=== PATIENT | male | born 1960 | race Caucasian/White ===

== ENCOUNTER 2017-05-31 09:21 | Inpatient (IN) | payer MEDICAID, MEDICARE, OTHER ==
[2017-05-31 09:33] VITALS: O2SAT 98
--- NOTE | 2017-05-31 09:52 | C.PDOC ---
History Of Present Illness 56 yr old male presents to the ER intoxicated. Patient states " I need to see a psychiatrist", states he is here to warn about an alien invasion. Patient has history of cutting. As per RN, patient complaints of depression with possible suicidal ideation. Patient denies use of other drugs. HPI is limited due to intoxication. Denies chest pain, SOB or homicidal ideation. LIMITED DUE TO INTOX "I NEED TO SEE A PSYCHIATRIST", STATES HERE TO WARN ABOUT ALIENS. HO CUTTING. PER RN, PT CO DEPRESSION ?SI. +ETOH. DENIES OTHER DRUG USE ROS LIMITED EXAM MILD DIST NONTOXIC PSYCH +INTOX CALM COOPERATIVE +ACTIVE PSYCHOSIS REMAINDER NEG Time Seen by Provider: 05/31/17 09:40 Chief Complaint (Nursing): Psychiatric Evaluation History Per: Patient History/Exam Limitations: no limitations Modifying Factor(s): Alcohol Past Medical History Reviewed: Historical Data, Nursing Documentation, Vital Signs Vital Signs: Last Vital Signs Temp 98.5 F 05/31/17 09:28 Pulse 92 H 05/31/17 09:28 Resp 18 05/31/17 09:28 BP 107/75 05/31/17 09:28 Pulse Ox 98 05/31/17 14:15 - Medical History PMH: Fractures, HTN (doesnt take meds) - [facility] INJECT/INFUSE NEC (09/27/13) Family History: States: No Known Family Hx - Social History Hx Tobacco Use: Yes Hx Alcohol Use: Yes Hx Substance Use: No - Immunization History Hx Tetanus Toxoid Vaccination: No Hx Influenza Vaccination: Yes Hx Pneumococcal Vaccination: Yes Review Of Systems Except As Marked, All Systems Reviewed And Found Negative. Cardiovascular: Negative for: Chest Pain Respiratory: Negative for: Shortness of Breath Psych: Positive for: Depression, Suicidal ideation Physical Exam - Physical Exam Appears: Non-toxic, In Acute Distress (Mild) Skin: Warm, Dry Head: Atraumatic, Normacephalic Respiratory: Normal Breath Sounds Neurological/Psych: Normal Speech, Normal Motor, Other (Intoxicated. Calm. Cooperative. Active psychosis.) ED Course And Treatment - Laboratory Results Result Diagrams: 05/31/17 10:08 05/31/17 10:08 O2 Sat by Pulse Oximetry: 98 (RA) Pulse Ox Interpretation: Normal Progress - Re-Evaluation Re-evaluation Note: 05/31/17 12:37 MED CLEAR FOR PSYCH CRISIS NOTIFIED - Data Reviewed Data Reviewed: Lab, Old records Medical Decision Making Medical Decision Making: PLAN: * Alcohol Serum * Drug Screen * CBC * CMP * Urinalysis Disposition Counseled Patient/Family Regarding: Studies Performed, Diagnosis - Disposition Disposition: HOSPITALIZED Disposition Time: 14:14 Condition: STABLE Forms: [facility] (Kiswahili) - POA Present On Arrival: None - Clinical Impression Clinical Impression: Alcohol intoxication, Psychosis - Scribe Statement The provider has reviewed the documentation as recorded by the Jhon Ignacio Provider Attestation: All medical record entries made by the Anaibjenny were at my direction and personally dictated by me. I have reviewed the chart and agree that the record accurately reflects my personal performance of the history, physical exam, medical decision making, and the department course for this patient. I have also personally directed, reviewed, and agree with the discharge instructions and disposition. Decision To Admit - Pt Status Changed To: Hospital Disposition Of: Inpatient - Admit Certification Admit to Inpatient:: After my assessment, the patient will require hospitalization for at least two midnights. This is because of the severity of symptoms shown, intensity of services needed, and/or the medical risk in this patient being treated as an outpatient. - InPatient: Physician Admission Certification: I certify that this patient requires 2 or more midnights of care for the following reason:: SEE NOTE - . Bed Request Type: Psychiatry Admitting Physician: Rhona Briones Patient Diagnosis: Alcohol intoxication, Psychosis
[2017-05-31 10:25] LABS: BASO # 0.1 K/uL (0.0-0.2); BASO % 1.1 % (0.0-2.0); EOS # 0.3 K/uL (0.0-0.7); EOS % 2.6 % (0.0-4.0); HEMATOCRIT 42.1 % (35.0-51.0); LYMPH # 2.2 K/uL (1.0-4.3); LYMPH % 20.9 % (20.0-40.0); MEAN CELL VOLUME 97.6 fL (80.0-94.0); MEAN CORPUSCULAR HEMOGLOBIN 33.8 pg (27.0-31.0); MEAN CORPUSCULAR HGB CONC 34.6 g/dL (33.0-37.0); MEAN PLATELET VOLUME 8.7 fL (7.2-11.7); MONO # 1.1 K/uL (0.0-0.8); MONO % 10.6 % (0.0-10.0); NRBC % 0.2 % (0.0-2.0); RED CELL DISTRIBUTION WIDTH 15.4 % (11.5-14.5); WHITE BLOOD COUNT 10.3 K/uL (4.8-10.8)
[2017-05-31 11:02] LABS: ALCOHOL SERUM 191 mg/dl (0-10); ALKALINE PHOSPHATASE 68 U/L (38-126); ALT/SGPT 734 U/L (21-72); AST/SGOT 385 U/L (17-59); BILIRUBIN,TOTAL 0.5 mg/dL (0.2-1.3); BLOOD UREA NITROGEN 15 mg/dL (9-20); CALCIUM 8.9 mg/dl (8.6-10.4); CARBON DIOXIDE 22 mmol/L (22-30); CHLORIDE 102 mmol/L (98-107); GFR AFRICAN-AMERICAN > 60; GLUCOSE,RANDOM 91 mg/dL (75-110); SODIUM 135 mmol/L (132-148); TOTAL PROTEIN 8.8 g/dL (6.3-8.3)
[2017-05-31 11:24] LABS: URINE BILIRUBIN NEGATIVE (NEGATIVE); URINE BLOOD NEGATIVE (NEGATIVE); URINE COLOR Yellow (YELLOW); URINE GLUCOSE (UA) NORMAL (Normal); URINE KETONE NEGATIVE (NEGATIVE); URINE LEUKOCYTE ESTERASE NEG Leu/uL (Negative); URINE PROTEIN NEGATIVE (NEGATIVE); URINE UROBILINOGEN NORMAL mg/dL (0.2-1.0); WBC URINE 1 /hpf (0-5)
[2017-05-31] MEDS: Multiple Vitamins Tab PO SCH (15:05)
--- NOTE | 2017-05-31 16:54 | PCM.BM ---
<WesKristen - Last Filed: 05/31/17 16:53> Treatment Plan Problems - Problems identified on initial assessmt Depression Date Initiated: 05/31/17 Time Initiated: 16:00 Status: Active Alcohol Abuse Date Initiated: 05/31/17 Time Initiated: 16:00 Assessment reference: NA Status: Active Treatment assets and liabiliti Patient Assests: ADL independent, good support system, negotiates basic needs Patient Liabilities: poor support system, substance abuse (Alcohol) - Milieu Protocol Maintain good personal hygiene: daily Encourage regular showers, daily Remind patient to perform daily oral care Conduct patient checks and document Observation sheet: Q15 minutes Maintain personal safety: every shift Educate patient to report safety concerns to staff, every shift Monitor environment for contraband/sharps Medication safety: Monitor for expected outcome, potential side effects: every shift, Assess barriers to learning: every shift, Assess readiness for medication education: every shift <Melinda Romeo - Last Filed: 06/02/17 11:03> Family Contact Family involvement: Family/SO is involved Family contact: Patient agrees to contact - Goals for Treatment Patient goals for treatment: "I want to go home." Discharge/Continuing Care - Education Needs Education Needs: Patient Medication, Patient Coping Skills, Patient Placement options, Patient Community resources - Discharge Discharge Criteria: Tolerates medication w/o severe side effects, Reduction of target symptoms Discharge to:: Home - Treatment Team Participation Discussed with Family/SO: No Was Patient/Family/SO present at Treatment Team Meeting: Yes <Adriana Yung - Last Filed: 06/02/17 11:17> - Diagnosis (1) Bipolar disorder, curr episode mixed, severe, with psychotic features Status: Acute Interventions: 06/02/17 11:16 * Assess/adjust medications daily and /or as needed * See patient on an individual basis 7x/week to assess level of manic behaviors and stability * Discuss risks, benefits, side effects and alternatives of medications * (2) Alcohol use disorder, severe, dependence Status: Acute Interventions: 06/02/17 11:17 * Assess 7x/week regarding severity of withdrawal * Educate regarding risks, benefits, side effects and alternatives of medications * Use Motivational Interviewing for abstinence * Use CBT for relapse prevention * Medication management for withdrawal symptoms * Encourage medication assisted treatment *
[2017-06-01] MEDS: Multiple Vitamins Tab PO SCH (10:00)
--- NOTE | 2017-06-01 20:26 | PCM.PSYCH ---
Initial Psychiatric Evaluation - Initial Psychiatric Evaluation Type of Admission: Voluntary Legal Status: Capacity Chief Complaint (in patient's own words): "Alcohol is not a problem for me" History of Present Illness and Precipitating Events: Patient is a 56 y/o male was self referred to [facility] ED for the treatment of etoh and depressive symptoms with SI and intoxicated. He was accompanied by his girlfriend of 3 months, who resided with patient. Both were registered for treatment as they both reported suicidal ideations and both were intoxicated. Per chart review: Patient reported during the suicidal assessment that he was suicidal with plan to cut his wrists, showing worker old lacerations on his arms. Pt. stated that his ex-girlfriend's children age 1 and 5 from cancer and he wanted to go with them. Patient BAL at that time was 191. CW assessed patient who stated that he was not suicidal, he admitted that he stated that he wanted to kill himself to be with the children that , patient admitted that he was saying "stupid" things as per patient. Patient stated that he is not hearing voices at this time but he hear voices from the Aliens that took him when he was 7 years old. Patient states that the Aliens are good people that want to teach him things about Science. Patient states that Aliens are "good" that comes to teach us. Patient states that it is a lot of bad things in the world. Patient states "human beings are bad, they hurt people , they have bombs. ". Patient reported that he was in the [place] for 8 years, he went to College for a year, patient is disabled. Patient states that the voices only comes sometimes. Patient admitted that he wante to earlier but now the aliens can take him there, referring to see the girls that . Patient stated that he drink daily since the age of 7 when his uncle was playing "dominoes" and gave him drinks. Patient reported that he is smoking since the age of 9. Presently smoking 1/2 a pack. Patient denied history of mental illness, no prior treatment. Pt. admitted that his PCP asked him to see a psychiatrist in [place] but he had no money for transportation. Today on evaluation he stated that etoh is not a problem for him and he made a jokes yesterday that he is SI. Currently he denied SI, depressive sx. He demanded to be d/c. He reported that he want to be with his GF. He was minimizing his symptoms. He refuse to take his ativan for etoh. He reported that he does not want to be in the hospital as he has had etoh craving and he wants drink etoh. He reproted that he drinks 1 cse of beer on daily basis with his GF. He reported that he had never etoh withdrawal symptoms, b/c he start drinking etoh in the morning and through out the day. He denied any AVH, DT, seizures in the past. Per chart review collateral information from the mother the pt is and he had etoh problems. BAL was high at the time of admission, AST and ALT was high Time spend 35 minutes Current Medications: Active Medications Generic Name Dose Route Start Last Admin Trade Name Freq PRN Reason Stop Dose Admin Benztropine Mesylate 2 mg 05/31/17 14:39 Cogentin PO Q6 PRN Extra Pyramidal Symptoms Folic Acid 1 mg 05/31/17 14:45 06/01/17 13:02 Folic Acid PO 1 mg DAILY TAY Administration Haloperidol 5 mg 05/31/17 14:39 Haldol PO Q8 PRN Moderate Agitation Haloperidol Lactate 5 mg 05/31/17 14:39 Haldol IM Q8 PRN Moderate Agitation Hydroxyzine HCl 25 mg 05/31/17 14:39 Atarax PO Q6 PRN Anxiety Ibuprofen 400 mg 05/31/17 18:15 05/31/17 18:44 Motrin Tab PO 400 mg Q6 PRN Administration Pain, moderate (4-7) Lorazepam 1 mg 05/31/17 15:00 06/01/17 16:38 Ativan PO 06/04/17 14:59 1 mg Q4 TAY Administration Taper Multivitamins 1 tab 05/31/17 14:45 06/01/17 10:00 Hexavitamin PO Not Given DAILY TAY Risperidone 0.5 mg 05/31/17 15:00 06/01/17 10:00 Risperdal Tab PO Not Given BID TAY Thiamine HCl 100 mg 05/31/17 14:45 06/01/17 13:02 Vitamin B1 Tab PO 100 mg DAILY TAY Administration Past Psychiatric History - Past Psychiatric History Previous Treatment History: Inpatient Prior Professional Help: denied History of ETOH/Drug Use: please see HPI History of Family Illness: denied Pertinent Medical Hx (Current Medical&Sleep Prob, Allergies): Allergies Allergy/AdvReac Type Severity Reaction Status Date / Time No Known Allergies Allergy Unverified 05/31/17 09:45 No Known Home Med 05/31/17 foot pain and wearing Right foot braces Review of Systems - Review of Systems All systems: reviewed and no additional remarkable complaints except (Psych and please see HPI) Mental Status Examination - Personal Presentation Personal Presentation: Looks stated age, Dressed appropriate to season Additional comments: He had +ve hand tremors, horizontal nystagmus, tongue fasciculation, disheveled. - Affect Affect: Constricted - Motor Activity Motor Activity: Psychomotor Agitation - Reliability in Providing Information Reliability in Providing Information: Fair - Speech Speech: Coherent - Mood Mood: Anxious - Formal Thought Process Formal Thought Process: Circumstantial Additional comments: goal directed and want to d/c from the unit - Hallucinations/Delusions Delusions: Other (denied, but appeared internally preoccupied and responding to stimuli) - Obsessions/Compulsions Obsessions: No Compulsions: No - Cognitive Functions Orientation: Person, Place, Situation Sensorium: Alert Abstract Thinking: [place] Estimate of Intelligence: Average Judgement: Imparied, as evidence by: Poor judgement, Imparied, as evidence by: Lack of insight into illness Memory: Recent intact, as evidence by: Ability to recall events of the day - Risk Risk: Seizure, Withdrawal Additional comments: DT - Strength & Assets Inventory Strength & Assets Inventory: Education - Limitations Limitations: Other (chronic etoh use ) DSM 5 DX - DSM 5 DSM 5 Diagnosis: etoh use disorder, dependence, severe, intoxicated, withdrawal - Recommended/Plan of Treatment Treatment Recommendations and Plan of Treatment: Ativan taper for etoh withdrawal symptoms Risperdal for psychosis Recommend to continue detox. Psychoeducation provided, regarding dx, tx, meds benefits, s/e, compliance. Pt verbalized understanding and agreed to start meds. Recommend individual/ group therapy Recommend inpt rehab after d/c Recommend to monitor vitals every 2-4 hour. Therapy in milieu. Projected ELOS: 5-7 days Prognosis: guarded Discharge Plan and Discharge Criteria: please see Plan
[2017-06-02 06:50] VITALS: RESP 20
--- NOTE | 2017-06-02 10:17 | PCM.PYCHPN ---
Psychiatric Progress Note - Psychiatric Progress Note Patient seen today, length of contact: 15 min Patient Chief Complaint: Patient seen and evaluated, chart reviewed and discussed with the nurse. Today patient appears anxious and reports withdrawal symptoms from alcohol. He remained irritable and agitated and signed 48 hours to be released after 2 days. He denies any suicidal ideation or homicidal ideation and denies any auditory or visual hallucinations. He is taking medication and denied any side effects. He needs more time for stabilization. Supportive therapy and psychoeducation were given. Medication Change: Yes (ativan taper) Medical Record Reviewed: Yes Mental Status Examination - Cognitive Function Orientation: Person, Place, Situation Memory: Intact Attention: WNL Concentration: Poor Association: WNL Fund of Knowledge: Poor - Mood Mood: Anxious - Affect Affect: Constricted - Speech Speech: Pressured - Formal Thought Process Formal Thought Process: Circumstantial - Suicidal Ideation Suicidal Ideation: No - Homicidal Ideation Homicidal Ideation: No Goal/Treatment Plan - Goal/Treatment Plan Need for Continued Stay: Severe depression anxiety, Severe functional impairment Progress Toward Problem(s) and Goals/Treatment Plan: Ativan taper for etoh withdrawal symptoms Risperdal for psychosis Recommend to continue detox. Psychoeducation provided, regarding dx, tx, meds benefits, s/e, compliance. Pt verbalized understanding and agreed to start meds. Recommend individual/ group therapy Recommend inpt rehab after d/c Recommend to monitor vitals every 2-4 hour. Therapy in milieu. - Smoking Cessation Smoking Cessation Initiated: No
[2017-06-02] MEDS: Multiple Vitamins Tab PO SCH (10:57)
[2017-06-03 06:32] VITALS: BP 139/85; PULSE 77; TEMP 97.9
--- NOTE | 2017-06-03 09:01 | PCM.PYCHDC ---
Mental Status Examination - Mental Status Examination Orientation: Person, Place, Situation, Time Memory: Intact Mood: Neutral Affect: Constricted Speech: Soft Attention: WNL Concentration: WNL Association: WNL Fund of Knowledge: WNL Formal Thought Process: No Impairment Description of patient's judgement and insight: good, fair Psychotic Thoughts and Behaviors: denies any AVH Suicidal Ideation: No Current Homicidal Ideation?: No Discharge Summary - Discharge Note Reason for Hospitalization: Patient is a 56 y/o male was self referred to [facility] ED for the treatment of etoh and depressive symptoms with SI and intoxicated. He was accompanied by his girlfriend of 3 months, who resided with patient. Both were registered for treatment as they both reported suicidal ideations and both were intoxicated. Per chart review: Patient reported during the suicidal assessment that he was suicidal with plan to cut his wrists, showing worker old lacerations on his arms. Pt. stated that his ex-girlfriend's children age 1 and 5 from cancer and he wanted to go with them. Patient BAL at that time was 191. CW assessed patient who stated that he was not suicidal, he admitted that he stated that he wanted to kill himself to be with the children that , patient admitted that he was saying "stupid" things as per patient. Patient stated that he is not hearing voices at this time but he hear voices from the Aliens that took him when he was 7 years old. Patient states that the Aliens are good people that want to teach him things about Science. Patient states that Aliens are "good" that comes to teach us. Patient states that it is a lot of bad things in the world. Patient states "human beings are bad, they hurt people , they have bombs. ". Patient reported that he was in the [employer] for 8 years, he went to College for a year, patient is disabled. Patient states that the voices only comes sometimes. Patient admitted that he wante to earlier but now the aliens can take him there, referring to see the girls that . Patient stated that he drink daily since the age of 7 when his uncle was playing "dominoes" and gave him drinks. Patient reported that he is smoking since the age of 9. Presently smoking 1/2 a pack. Patient denied history of mental illness, no prior treatment. Pt. admitted that his PCP asked him to see a psychiatrist in [place] but he had no money for transportation. Today on evaluation he stated that etoh is not a problem for him and he made a jokes yesterday that he is SI. Currently he denied SI, depressive sx. He demanded to be d/c. He reported that he want to be with his GF. He was minimizing his symptoms. He refuse to take his ativan for etoh. He reported that he does not want to be in the hospital as he has had etoh craving and he wants drink etoh. He reproted that he drinks 1 cse of beer on daily basis with his GF. He reported that he had never etoh withdrawal symptoms, b/c he start drinking etoh in the morning and through out the day. He denied any AVH, DT, seizures in the past. Consultations:: List each consultation separately and include: 1. Reason for request. 2. Findings. 3. Follow-up Summary of Hospital Course include:: 1. Description of specific treatment plan utilized for patients during their course of treatmen. 2. Summarize the time- course for resolution of acute symptoms and/or regressed behaviors. 3. Describe issues identified and worked on during hospitalization. 4. Describe medication utilized. 5. Describe medical problems identified and treated. 6. Reassessment of suicide risk Summary of Hospital Course: Patient was admitted to psychiatric floor on 05/31 for depressive and anxiety symptoms as well as to detox from alcohol. The pt was started on his antidepressants and detox medications. Support therapy, psychotherapy, and psychoeducation were also provided. For his detox from alcohol he was started on ativan taper which he completed successfully without any complications. The patient attended groups and activities, as well as milieu therapy. Patient denied any feelings of hopelessness, helplessness, and worthlessness, denied any problem with the sleep or appetite, denied suicidal ideation or homicidal ideation. Pt denied any auditory or visual hallucinations. Some changes were made in his current medications and patient was discharged on following medications. He tolerated these medications very well and denied any side effects. He signed a 48 hrs notice, so he was discharged today. All the risks and benefits of medications were discussed and the patient understood and agreed. After care discussed and the patient agreed to go to the [facility]'. - Diagnosis (1) Bipolar disorder, curr episode mixed, severe, with psychotic features Status: Acute (2) Alcohol use disorder, severe, dependence Status: Acute - Final Diagnosis (DSM 5) Condition upon Discharge: STABLE DSM 5: Bipolar disorder, curr episode mixed, severe, with psychotic features Alcohol use disorder, severe, dependence Disposition: HOME/ ROUTINE Follow-up Treatment Plan: Education: Pt was educated and counseled about the risks and benefits of taking and not taking medications. Pt was educated and counseled about the risks of drinking and abusing drugs. Pt was educated and counseled to go to the ER or call 911 if pt develop suicidal ideation or homicidal ideation, worsening of symptoms or severe side effects of the meds. Prescriptions/Medication Reconciliation: Benztropine [Cogentin] 1 mg PO HS #14 tab Gabapentin [Neurontin] 300 mg PO TID 14 Days cap risperiDONE [RisperDAL Tab] 2 mg PO HS #14 tab traZODone [Desyrel] 50 mg PO HS #14 tab - Smoking Cessation Smoking Cessation Medication prescribed: No - Antipsychotic Medications Pt discharged on 2 or more routine antipsychotic medications: No
[2017-06-03] MEDS ORDERED: Influenza Vaccine 60 mcg/0.5 mL SYR (4YR UP) IM ONE (10:00)
[2017-06-03] MEDS: Multiple Vitamins Tab PO SCH (10:03)
== END 2017-06-03 11:33 | disposition home or self-care (01) | DRG 885 ==
LOC: C.ER 09:21 → C.9E 14:15 → C.5E 14:49
PROVIDERS: ADMIT Psychiatry & Neurology Psychiatry; ATTEND Psychiatry & Neurology Psychiatry
DX: F31.9 Bipolar disorder, unspecified (principal); I10 Essential (primary) hypertension; F29 Unspecified psychosis not due to a substance or known physiological condition; F10.229 Alcohol dependence with intoxication, unspecified; F17.200 Nicotine dependence, unspecified, uncomplicated

== ENCOUNTER 2018-05-28 01:39 | Inpatient (IN) | payer MEDICARE ==
--- NOTE | 2018-05-28 01:56 | C.PDOC ---
History Of Present Illness 57 year old male presents to the ED c/o feeling depresses, SI with a plan. Patient states he feels depressed because nobody wants to have him for Thanksgiving. Patient denies HI, hallucinations, CP, SOB, trauma, injury, fall. Time Seen by Provider: 05/28/18 01:54 Chief Complaint (Nursing): Psychiatric Evaluation History Per: Patient History/Exam Limitations: no limitations Onset/Duration Of Symptoms: Days Current Symptoms Are (Timing): Still Present Suicide/Self Injury Attempted (Context): Cut Wrists Modifying Factor(s): Alcohol Associated Symptoms: Depression, Suicidal Thoughts, Suicidal Plan Recent travel outside of the [place]: No Additional History Per: Patient Past Medical History Reviewed: Historical Data, Nursing Documentation, Vital Signs Vital Signs: Last Vital Signs Temp 98.2 F 05/28/18 01:41 Pulse 94 H 05/28/18 01:41 Resp 20 05/28/18 01:41 BP 115/76 05/28/18 01:41 Pulse Ox 99 05/28/18 01:41 - Medical History PMH: Fractures, HTN (doesnt take meds) Surgical History: No Surg Hx - [facility] Procedures INJECT/INFUSE NEC (09/27/13) Family History: States: Unknown Family Hx - Social History Hx Tobacco Use: Yes Hx Alcohol Use: Yes Hx Substance Use: No - Immunization History Hx Tetanus Toxoid Vaccination: No Hx Influenza Vaccination: Yes Hx Pneumococcal Vaccination: No Review Of Systems Constitutional: Negative for: Fever, Chills Eyes: Negative for: Vision Change Cardiovascular: Negative for: Chest Pain Respiratory: Negative for: Cough, Shortness of Breath Gastrointestinal: Negative for: Nausea, Vomiting, Abdominal Pain Skin: Positive for: Rash Neurological: Negative for: Weakness, Numbness Psych: Positive for: Depression, Suicidal ideation Physical Exam - Physical Exam Appears: Non-toxic, No Acute Distress, Other (flat affect) Skin: Warm, Dry Head: Normacephalic Eye(s): bilateral: Normal Inspection Neck: Supple Chest: Symmetrical Cardiovascular: Rhythm Regular Respiratory: No Rales, No Rhonchi, No Wheezing Gastrointestinal/Abdominal: Soft, No Tenderness, No Guarding, No Rebound Extremity: Capillary Refill (< 2 seconds) Extremity: Left: Other (3 excoriations on left wrist), Bilateral: Atraumatic, Normal ROM Pulses: Left Radial: Normal, Right Radial: Normal Neurological/Psych: Oriented x3, Normal Speech, Normal Cognition, Normal Motor, Normal Sensation Gait: Steady ED Course And Treatment - Laboratory Results Result Diagrams: 05/28/18 03:00 05/28/18 03:00 O2 Sat by Pulse Oximetry: 99 (ON RA) Pulse Ox Interpretation: Normal Progress Note: Plan: - Labs. - UA. - Crisis eval. - 1:1 Obs Disposition Counseled Patient/Family Regarding: Studies Performed, Diagnosis - Disposition Disposition Time: 01:54 Condition: FAIR Forms: Yodo1 (Wolof) - Clinical Impression Clinical Impression: Alcohol abuse, Major depression - Scribe Statement The provider has reviewed the documentation as recorded by the Scribe Kamaljit Sales All medical record entries made by the Scribe were at my direction and personally dictated by me. I have reviewed the chart and agree that the record accurately reflects my personal performance of the history, physical exam, medical decision making, and the department course for this patient. I have also personally directed, reviewed, and agree with the discharge instructions and disposition. Physician Patient Turnover Patient Signed Over To: Melissa Rodarte Handoff Comments: pending crisis and dispo
[2018-05-28] MEDS ORDERED: Tetanus/Diphtheria Toxoids 0.5 ml Syringe IM ONE ×2 (02:43→02:49)
[2018-05-28 03:12] LABS: BASO # 0.1 K/uL (0.0-0.2); BASO % 1.8 % (0.0-2.0); EOS # 0.1 K/uL (0.0-0.7); EOS % 1.7 % (0.0-4.0); HEMOGLOBIN 14.3 g/dL (12.0-18.0); LYMPH # 2.5 K/uL (1.0-4.3); LYMPH % 34.1 % (20.0-40.0); MEAN CELL VOLUME 97.4 fL (80.0-94.0); MEAN CORPUSCULAR HEMOGLOBIN 33.1 pg (27.0-31.0); MEAN PLATELET VOLUME 8.6 fL (7.2-11.7); MONO # 0.8 K/uL (0.0-0.8); MONO % 11.4 % (0.0-10.0); NEUT # 3.8 K/uL (1.8-7.0); NRBC % 0.2 % (0.0-2.0); RBC 4.31 Mil/uL (4.40-5.90); RED CELL DISTRIBUTION WIDTH 15.1 % (11.5-14.5); WHITE BLOOD COUNT 7.4 K/uL (4.8-10.8)
[2018-05-28 03:16] LABS: ALB/GLOB RATIO 1.3 (1.0-2.1); ALBUMIN 4.8 g/dL (3.5-5.0); ALT/SGPT 295 U/L (21-72); AST/SGOT 276 U/L (17-59); BLOOD UREA NITROGEN 9 mg/dL (9-20); CALCIUM 9.2 mg/dl (8.6-10.4); GFR NON-AFRICAN AMERICAN > 60
[2018-05-28 03:56] LABS: URINE BACTERIA OCC (<OCC); URINE BILIRUBIN NEGATIVE (NEGATIVE); URINE BLOOD 2+ (NEGATIVE); URINE CLARITY Clear (Clear); URINE COLOR Yellow (YELLOW); URINE GLUCOSE (UA) NORMAL (Normal); URINE LEUKOCYTE ESTERASE NEG Leu/uL (Negative); URINE PROTEIN 1+ mg/dL (NEGATIVE); URINE UROBILINOGEN NORMAL mg/dL (0.2-1.0)
[2018-05-28 03:58] LABS: BARBITURATES, UR NEGATIVE (NEGATIVE); BENZODIAZEPINES, UR NEGATIVE (NEGATIVE); OPIATES, UR NEGATIVE (NEGATIVE); PHENCYCLIDINE, UR NEGATIVE (NEGATIVE)
[2018-05-28 09:03] VITALS: O2SAT 98
[2018-05-28] MEDS ORDERED: Benzocaine/Menthol (Cepacol) Lozenge PO PRN (10:08)
[2018-05-28] MEDS ORDERED: Aluminum Hydroxide/Magnesium Hydroxide Susp (30 mL) PO PRN (10:08)
[2018-05-28] MEDS: Multiple Vitamins Tab PO SCH (10:50)
--- NOTE | 2018-05-28 11:00 | PCM.BM ---
<Lissa Jean Baptiste - Last Filed: 05/28/18 10:59> Treatment Plan Problems - Problems identified on initial assessmt Substance Abuse ETOH Date Initiated: 05/28/18 Time Initiated: 11:00 Assessment reference: NA Status: Active Treatment assets and liabiliti Patient Assests: ADL independent, good support system, negotiates basic needs Patient Liabilities: live alone, financial problems, substance abuse, medical problems - Milieu Protocol Maintain good personal hygiene: daily Encourage regular showers, daily Remind patient to perform daily oral care, daily Assist patient to perform ADL's Maintain personal safety: every shift Educate patient to report safety concerns to staff, every shift Monitor environment for contraband/sharps Medication safety: Monitor for expected outcome, potential side effects: every shift, Assess barriers to learning: every shift, Assess readiness for medication education: every shift <Ernestine Lantigua - Last Filed: 05/29/18 14:12> Family Contact Family involvement: Patient does not wish Family/SO involvement Family contact: Patient declines to allow family contact at present - Goals for Treatment Patient goals for treatment: "I want to go to an outpatient program." Discharge/Continuing Care - Education Needs Education Needs: Patient Medication, Patient Diagnosis/Disease Process, Patient Coping Skills, Patient Placement options, Patient Community resources - Discharge Discharge Criteria: Free of Suicidal thoughts, Normal sleep pattern, Ability to care for self, No longer exhibiting s/s of withdrawal, Reduction of target symptoms Discharge to:: Home - Treatment Team Participation Discussed with Family/SO: No Was Patient/Family/SO present at Treatment Team Meeting: Yes
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
[2018-05-29] MEDS: Multiple Vitamins Tab PO SCH (10:48)
--- NOTE | 2018-05-29 17:54 | PCM.PYCHPN ---
Psychiatric Progress Note - Psychiatric Progress Note Patient seen today, length of contact: 16 min Mental Status Examination - Cognitive Function Orientation: Person, Place, Situation, Time - Mood Mood: Depressed, Anxious - Affect Affect: Constricted, Depressed - Formal Thought Process Formal Thought Process: Hallucinations, Delusions, Paranoia, Loosening of associations - Homicidal Ideation Homicidal Ideation: No
[2018-05-30] MEDS: Multiple Vitamins Tab PO SCH (09:58)
[2018-05-30] MEDS: Venlafaxine 75 mg ER Cap PO SCH (10:02)
--- NOTE | 2018-05-30 13:18 | PCM.PYCHPN ---
Psychiatric Progress Note - Psychiatric Progress Note Patient seen today, length of contact: 16 min Medication Change: Yes Medical Record Reviewed: Yes Mental Status Examination - Cognitive Function Orientation: Person, Place, Situation, Time - Mood Mood: Depressed, Anxious - Affect Affect: Constricted, Depressed - Formal Thought Process Formal Thought Process: Hallucinations, Delusions, Paranoia, Loosening of associations - Homicidal Ideation Homicidal Ideation: No
[2018-05-31] MEDS: Multiple Vitamins Tab PO SCH (09:22)
[2018-05-31] MEDS: Venlafaxine 75 mg ER Cap PO SCH (09:22)
--- NOTE | 2018-05-31 23:36 | PCM.PYCHPN ---
Psychiatric Progress Note - Psychiatric Progress Note Patient seen today, length of contact: 15 minutes Patient Chief Complaint: I am feeling better. Can I go home today. Problems Identified/Issues Discussed: Patient seen, chart reviewed, case discussed with the staff. Issues related to illness and treatment were discussed with the patient and staff. Reported compliant with treatment with no adverse effects. Tolerating treatment very well. Awake, alert and oriented x3. Calm and cooperative with good eye contact. Mood reported as depressed. Affect appropriate. Patient has already signed a 48-hour work notice for discharge ending tomorrow. Patient's balance was little of. Discussed with the patient about treatment. Patient agreed to stay for 1 more day. We will discharge the patient tomorrow before the end of 48-hour notice for discharge. Aftercare discussed with the patient. Denied any delusions, auditory or visual hallucinations, suicidal ideations or homicidal ideations at the time of evaluation. Medical Problems: Hypertension: Diagnostic Results: Reviewed DSM 5 Symptoms Update: Some improvement with treatment. Medication Change: No Medical Record Reviewed: Yes Mental Status Examination - Cognitive Function Orientation: Person, Place, Situation, Time Memory: Intact Attention: WNL Concentration: WNL Association: [facility] Fund of Knowledge: [facility] Decription of patient's judgement and insights: Fair - Mood Mood: Depressed (Less than before) - Affect Affect: Other (Appropriate) - Speech Speech: Appropriate - Formal Thought Process Formal Thought Process: No Impairment Psychotic Thoughts and Behaviors: None - Suicidal Ideation Suicidal Ideation: No - Homicidal Ideation Homicidal Ideation: No Goal/Treatment Plan - Goal/Treatment Plan Need for Continued Stay: Remain at risks for inpatient hospitalization, Discharge may exacerbated symptoms, Severe functional impairment Progress Toward Problem(s) and Goals/Treatment Plan: Some improvement with treatment. Patient education. Supportive therapy. CBT for relapse prevention. IA for abstinence. Continue treatment as before. Patient does not want to go for any follow-up treatment after discharge from the hospital. Education provided still refused. Patient wants to go home after discharge from the hospital. Estimated Date of D/C: 06/01/18 - Smoking Cessation Smoking Cessation Initiated: No
[2018-06-01 07:56] VITALS: BP 102/74; PULSE 82; RESP 20; TEMP 98.4
[2018-06-01] MEDS: Venlafaxine 75 mg ER Cap PO SCH (09:44)
[2018-06-01] MEDS: Multiple Vitamins Tab PO SCH (09:44)
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
== END 2018-06-01 10:15 | disposition home or self-care (01) | DRG 895 ==
LOC: C.ER 01:39 → C.5E 09:05
PROVIDERS: ADMIT Psychiatry & Neurology Psychiatry; ATTEND Psychiatry & Neurology Psychiatry
PROC: GZHZZZZ Group Psychotherapy (ICD-10-PCS; principal; 2018-05-28)
PROC: HZ52ZZZ Individual Psychotherapy for Substance Abuse Treatment, Cognitive-Behavioral (ICD-10-PCS; 2018-05-28)
PROC: GZ58ZZZ Individual Psychotherapy, Cognitive-Behavioral (ICD-10-PCS; 2018-05-28)
PROC: GZ56ZZZ Individual Psychotherapy, Supportive (ICD-10-PCS; 2018-05-28)
PROC: HZ59ZZZ Individual Psychotherapy for Substance Abuse Treatment, Supportive (ICD-10-PCS; 2018-05-28)
PROC: HZ56ZZZ Individual Psychotherapy for Substance Abuse Treatment, Psychoeducation (ICD-10-PCS; 2018-05-28)
PROC: HZ2ZZZZ Detoxification Services for Substance Abuse Treatment (ICD-10-PCS; 2018-05-28)
DX: F10.239 Alcohol dependence with withdrawal, unspecified (principal); F33.3 Major depressive disorder, recurrent, severe with psychotic symptoms; Y90.8 Blood alcohol level of 240 mg/100 ml or more; I10 Essential (primary) hypertension; Z87.891 Personal history of nicotine dependence

== ENCOUNTER 2018-06-06 20:32 | Emergency (ER) | payer MEDICARE ==
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
[2018-06-06 21:42] LABS: BASO # 0.1 K/uL (0.0-0.2); BASO % 1.8 % (0.0-2.0); EOS # 0.1 K/uL (0.0-0.7); EOS % 1.4 % (0.0-4.0); HEMOGLOBIN 12.8 g/dL (12.0-18.0); LYMPH # 2.2 K/uL (1.0-4.3); LYMPH % 26.8 % (20.0-40.0); MEAN CELL VOLUME 96.5 fL (80.0-94.0); MEAN CORPUSCULAR HGB CONC 34.2 g/dL (33.0-37.0); MEAN PLATELET VOLUME 7.9 fL (7.2-11.7); MONO % 12.7 % (0.0-10.0); NEUT # 4.6 K/uL (1.8-7.0); NEUT % 57.3 % (50.0-75.0); NRBC % 0.1 % (0.0-2.0); RBC 3.87 Mil/uL (4.40-5.90); RED CELL DISTRIBUTION WIDTH 14.9 % (11.5-14.5); WHITE BLOOD COUNT 8.1 K/uL (4.8-10.8)
[2018-06-06 21:48] LABS: SQUAMOUS EPITHIAL < 1 /hpf (0-5); URINE BACTERIA RARE (<OCC); URINE BILIRUBIN NEGATIVE (NEGATIVE); URINE BLOOD 2+ (NEGATIVE); URINE CLARITY Clear (Clear); URINE COLOR Yellow (YELLOW); URINE GLUCOSE (UA) NORMAL (Normal); URINE LEUKOCYTE ESTERASE NEG Leu/uL (Negative); URINE PROTEIN NEGATIVE (NEGATIVE); URINE UROBILINOGEN NORMAL mg/dL (0.2-1.0)
[2018-06-06 21:56] LABS: ACETAMINOPHEN < 10.0 ug/mL (10.0-30.0); SALICYLATE < 1.0 mg/dL 1
[2018-06-06 21:57] LABS: ALB/GLOB RATIO 1.2 (1.0-2.1); ALBUMIN 4.2 g/dL (3.5-5.0); ALT/SGPT 111 U/L (21-72); AST/SGOT 96 U/L (17-59); BLOOD UREA NITROGEN 24 mg/dL (9-20); CALCIUM 9.3 mg/dl (8.6-10.4); GFR NON-AFRICAN AMERICAN > 60
[2018-06-06 21:58] LABS: BARBITURATES, UR NEGATIVE (NEGATIVE); BENZODIAZEPINES, UR NEGATIVE (NEGATIVE); OPIATES, UR NEGATIVE (NEGATIVE); PHENCYCLIDINE, UR NEGATIVE (NEGATIVE)
[2018-06-07 06:07] VITALS: BP 142/69; PULSE 89; RESP 18; TEMP 98.4; O2SAT 98
== END 2018-06-07 06:18 | disposition home or self-care (01) ==
LOC: C.ER 20:32
DX: F10.129 Alcohol abuse with intoxication, unspecified (principal); Y90.8 Blood alcohol level of 240 mg/100 ml or more
CPT/HCPCS: 80053; 81001; 82948; 83735; 84100; 85025; 96372; 99285; G0480; J1630; J2060

== ENCOUNTER 2018-06-12 04:45 | Emergency (ER) | payer MEDICARE ==
[2018-06-12 04:59] VITALS: RESP 20
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
[2018-06-12 05:45] VITALS: BP 122/71; PULSE 78; TEMP 97.6; O2SAT 98
== END 2018-06-12 05:45 | disposition home or self-care (01) ==
LOC: C.ER 04:45
DX: Z04.89 Encounter for examination and observation for other specified reasons (principal)

== ENCOUNTER 2018-08-16 06:04 | Inpatient (IN) | payer MEDICARE ==
--- NOTE | 2018-08-16 06:29 | C.PDOC ---
History Of Present Illness Pt presents to ED ambulatory c/o of feeling depressed and having thoughts of hurting himself but no attempts. Pt also states like he's been drinking more than usual. Denies any medical c/o Time Seen by Provider: 08/16/18 06:21 Chief Complaint (Nursing): Psychiatric Evaluation History/Exam Limitations: intoxication (alcohol) Suicide/Self Injury Attempted (Context): None Modifying Factor(s): Alcohol Past Medical History Vital Signs: Last Vital Signs Temp 98.9 F 08/16/18 06:15 Pulse 89 08/16/18 06:15 Resp 18 08/16/18 06:15 BP 144/93 H 08/16/18 06:15 Pulse Ox 96 08/16/18 06:15 - Medical History PMH: Depression, Fractures, Hepatitis (C,B), HTN (doesnt take meds) Denies: Diabetes, HIV, Seizures, Sexually Transmitted Disease - [facility] Procedures DETOXIFICATION SERVICES FOR SUBSTANCE ABUSE TREATMENT (05/28/18) GROUP PSYCHOTHERAPY (05/28/18) INDIV PSYCHOTHERAPY FOR SUBSTANCE ABUSE TREATMENT, SUPPORT (05/28/18) INDIV PSYCHOTHERAPY FOR SUBSTANCE ABUSE, COGNITIV BEHAVIORAL (05/28/18) INDIV PSYCHOTHERAPY FOR SUBSTANCE ABUSE, PSYCHOEDUCATION (05/28/18) INDIVIDUAL PSYCHOTHERAPY, COGNITIVE-BEHAVIORAL (05/28/18) INDIVIDUAL PSYCHOTHERAPY, SUPPORTIVE (05/28/18) INJECT/INFUSE NEC (09/27/13) Family History: States: Unknown Family Hx - Social History Hx Tobacco Use: Yes Hx Alcohol Use: Yes (daily) Hx Substance Use: Yes - Immunization History Hx Tetanus Toxoid Vaccination: No Hx Influenza Vaccination: Yes Hx Pneumococcal Vaccination: No Review Of Systems Constitutional: Negative for: Fever Cardiovascular: Negative for: Chest Pain Respiratory: Negative for: Cough, Shortness of Breath Gastrointestinal: Negative for: Nausea, Vomiting, Abdominal Pain Neurological: Negative for: Weakness, Numbness, Confusion, Headache, Dizziness Physical Exam - Physical Exam Appears: Well, Non-toxic, No Acute Distress Skin: Normal Color Head: Atraumatic Eye(s): bilateral: Normal Inspection Neck: Normal, Supple Chest: Symmetrical, No Tenderness Cardiovascular: Rhythm Regular, No Murmur Respiratory: Normal Breath Sounds, No Wheezing Gastrointestinal/Abdominal: Normal Exam, Soft, No Tenderness Extremity: Normal ROM, No Pedal Edema, No Calf Tenderness Extremity: Bilateral: Atraumatic, Normal Color And Temperature Neurological/Psych: Oriented x3, Normal Speech, Normal Cognition, Normal Motor, Normal Sensation Gait: Steady ED Course And Treatment - Laboratory Results Result Diagrams: 08/16/18 06:49 O2 Sat by Pulse Oximetry: 96 Progress Note: Pt is being evaluated by crisis and placed on 1:1 observation for suicidal precaution. Disposition - Disposition Disposition: HOME/ ROUTINE Disposition Time: 06:58 Condition: STABLE Forms: [facility] (Azerbaijani) - Clinical Impression Clinical Impression: Moderate major depression, single episode, Alcohol abuse Physician Patient Turnover Patient Signed Over To: Deepika Cruz Handoff Comments: Pending labs for medical lclearance and Crisis evaluation for disposition
[2018-08-16 06:52] LABS: BASO # 0.1 K/uL (0.0-0.2); BASO % 1.3 % (0.0-2.0); EOS # 0.2 K/uL (0.0-0.7); EOS % 3.2 % (0.0-4.0); HEMOGLOBIN 13.2 g/dL (12.0-18.0); LYMPH # 2.5 K/uL (1.0-4.3); LYMPH % 33.2 % (20.0-40.0); MEAN CELL VOLUME 99.4 fL (80.0-94.0); MEAN CORPUSCULAR HEMOGLOBIN 34.1 pg (27.0-31.0); MEAN CORPUSCULAR HGB CONC 34.3 g/dL (33.0-37.0); MEAN PLATELET VOLUME 8.2 fL (7.2-11.7); MONO # 1.2 K/uL (0.0-0.8); MONO % 16.3 % (0.0-10.0); NEUT # 3.5 K/uL (1.8-7.0); NRBC % 0.1 % (0.0-2.0); RBC 3.88 Mil/uL (4.40-5.90); RED CELL DISTRIBUTION WIDTH 16.1 % (11.5-14.5); WHITE BLOOD COUNT 7.5 K/uL (4.8-10.8)
[2018-08-16 06:56] LABS: SQUAMOUS EPITHIAL < 1 /hpf (0-5); URINE BILIRUBIN NEGATIVE (NEGATIVE); URINE BLOOD 3+ (NEGATIVE); URINE CLARITY Clear (Clear); URINE COLOR Yellow (YELLOW); URINE GLUCOSE (UA) NORMAL (Normal); URINE LEUKOCYTE ESTERASE NEG Leu/uL (Negative); URINE PROTEIN 2+ mg/dL (NEGATIVE)
[2018-08-16 07:03] LABS: ALB/GLOB RATIO 1.4 (1.0-2.1); ALBUMIN 4.6 g/dL (3.5-5.0); ALT/SGPT 227 U/L (21-72); AST/SGOT 250 U/L (17-59); BLOOD UREA NITROGEN 11 mg/dL (9-20); CALCIUM 8.9 mg/dl (8.6-10.4); GFR NON-AFRICAN AMERICAN > 60
[2018-08-16 07:10] LABS: BARBITURATES, UR NEGATIVE (NEGATIVE); BENZODIAZEPINES, UR NEGATIVE (NEGATIVE); OPIATES, UR NEGATIVE (NEGATIVE); PHENCYCLIDINE, UR NEGATIVE (NEGATIVE)
--- NOTE | 2018-08-16 12:46 | PCM.BM ---
<Britany Rileyn - Last Filed: 08/16/18 12:43> Treatment Plan Problems - Problems identified on initial assessmt Low Motivation to Change Date Initiated: 08/16/18 Time Initiated: 12:40 Assessment reference: NA Status: Active Altered Health Maintenance Date Initiated: 08/16/18 Time Initiated: 12:40 Assessment reference: NA Status: Active Treatment assets and liabiliti Patient Assests: ADL independent, good support system, negotiates basic needs Patient Liabilities: poor support system, relationship conflicts, substance abuse - Milieu Protocol Maintain good personal hygiene: daily Encourage regular showers, daily Remind patient to perform daily oral care, daily Assist patient to perform ADL's Conduct patient checks and document Observation sheet: Q15 minutes Maintain personal safety: every shift Educate patient to report safety concerns to staff, every shift Monitor environment for contraband/sharps Medication safety: Monitor for expected outcome, potential side effects: every shift, Assess barriers to learning: every shift, Assess readiness for medication education: every shift <Melinda Romeo - Last Filed: 08/17/18 13:53> Family Contact Family involvement: Famliy/SO not involved - Goals for Treatment Patient goals for treatment: "I don't know." Discharge/Continuing Care - Education Needs Education Needs: Patient Medication, Patient Coping Skills, Patient Placement options, Patient Community resources - Discharge Discharge Criteria: Tolerates medication w/o severe side effects, No longer exhibiting s/s of withdrawal Discharge to:: Home - Treatment Team Participation Discussed with Family/SO: No Was Patient/Family/SO present at Treatment Team Meeting: Yes <Jessica Aguilar - Last Filed: 08/17/18 23:32> - Diagnosis (1) Alcohol use disorder, severe, dependence Status: Acute Interventions: 08/17/18 23:31 * Assess 7x/week regarding severity of withdrawal * Educate regarding risks, benefits, side effects and alternatives of medications * Use Motivational Interviewing for abstinence * Use CBT for relapse prevention * Medication management for withdrawal symptoms * Encourage medication assisted treatment * (2) Bipolar disorder, curr episode mixed, severe, with psychotic features Status: Acute Interventions: 08/17/18 23:32 * Assess/adjust medications daily and /or as needed * See patient on an individual basis 7x/week to assess level of manic behaviors and stability * Discuss risks, benefits, side effects and alternatives of medications *
[2018-08-16] MEDS: Multiple Vitamins Tab PO SCH (14:18)
[2018-08-16] MEDS: Venlafaxine 75 mg ER Cap PO SCH (14:40)
--- NOTE | 2018-08-16 19:10 | PCM.PSYCH ---
Initial Psychiatric Evaluation - Initial Psychiatric Evaluation Type of Admission: Voluntary Legal Status: Capacity Chief Complaint (in patient's own words): I need help for my depression and alcohol use. History of Present Illness and Precipitating Events: Patient is a 57 years old, single, unemployed, on disability, male with history of depression, noncompliant with treatment was admitted due to worsening of depression and withdrawing from alcohol. Patient reported feeling depression with decreased sleep and appetite. Denied any suicidal or homicidal ideations. Denied any suicidal attempts. Patient has history of visual hallucinations, was seeing aliens. Denied any manic symptoms. Patient has history of multiple inpatient psychiatric hospitalization. Alcohol: Patient started drinking alcohol at 12 years of age, increased gradually. Currently he was drinking 3-10 cans each of 24 ounces and 2 shots of vodka daily. His last drink of alcohol was this morning. At the time of evaluation patient was trembling, unable to stand, lethargic, body aches, flushed and sweating. Patient denied use of any drugs including cannabis, cocaine and heroin. He is smoking 1 pack of cigarettes daily. Refused to take nicotine patch. Patient has history of hip surgery. Patient was born in [place] and has high school graduation. Patient is not working since 2012. Patient is on disability. Patient was never and has no children. Patient lives with his girlfriend. Current Medications: Active Medications Generic Name Dose Route Start Last Admin Trade Name Freq PRN Reason Stop Dose Admin Clonidine HCl 0.1 mg 08/16/18 14:08 Catapres PO Q4H PRN Symptoms of alcohol withdrawl Folic Acid 1 mg 08/16/18 14:15 08/16/18 14:17 Folic Acid PO 1 mg DAILY TAY Administration Gabapentin 100 mg 08/16/18 14:15 08/16/18 17:43 Neurontin PO 100 mg TID TAY Administration Ibuprofen 400 mg 08/16/18 14:13 Motrin Tab PO Q6 PRN Pain, moderate (4-7) Lorazepam 2 mg 08/16/18 14:15 08/16/18 17:43 Ativan PO 08/21/18 14:14 2 mg Q4 TAY Administration Taper Lorazepam 1 mg 08/16/18 14:08 Ativan PO Q4H PRN Symptoms of alcohol withdrawl Multivitamins 1 tab 08/16/18 14:15 08/16/18 14:18 Hexavitamin PO 1 tab DAILY TAY Administration Quetiapine Fumarate 100 mg 08/16/18 22:00 Seroquel PO HS TAY Thiamine HCl 100 mg 08/16/18 14:15 08/16/18 14:22 Vitamin B1 Tab PO 100 mg DAILY TAY Administration Trazodone HCl 50 mg 08/16/18 22:00 Desyrel PO HS PRN Insomnia Venlafaxine HCl 75 mg 08/16/18 14:15 08/16/18 14:40 Effexor Xr PO Not Given DAILY TAY Past Psychiatric History - Past Psychiatric History Previous Treatment History: Inpatient At city [facility]: Mostly at [facility] History of Abuse: None reported History of ETOH/Drug Use: See HPI History of Family Illness: None reported Pertinent Medical Hx (Current Medical&Sleep Prob, Allergies): Allergies Allergy/AdvReac Type Severity Reaction Status Date / Time No Known Allergies Allergy Verified 08/16/18 06:27 Gabapentin [Neurontin] 100 mg PO TID #90 cap 06/01/18 QUEtiapine [Seroquel] 100 mg PO HS #30 tab 06/01/18 Venlafaxine HCl 75 mg PO DAILY 30 Days #30 tab 06/01/18 traZODone [Desyrel] 50 mg PO HS PRN #30 tab 06/01/18 Hepatitis C Hypertension Review of Systems - Psychiatric Psychiatric: As Per HPI, Anxiety, Behavioral Changes, Depression Mental Status Examination - Personal Presentation Personal Presentation: Looks stated age - Affect Affect: Depressed - Motor Activity Motor Activity: Calm - Reliability in Providing Information Reliability in Providing Information: Fair - Speech Speech: Organized - Mood Mood: Depressed - Formal Thought Process Formal Thought Process: No Impairment - Hallucinations/Delusions Hallucinations: Other (None reported) Delusions: Other - Obsessions/Compulsions Obsessions: None Compulsions: None - Cognitive Functions Orientation: Person, Place, Situation, Time Sensorium: Alert Attention/Concentration: Attentive Abstract Thinking: [place] Estimate of Intelligence: Average Judgement: Intact, as evidence by: Insight regarding need for hospitalization Memory: Recent intact, as evidence by: Ability to recall events of the day, Remote intact, as evidenced by: Ability to recall historical events - Risk Risk: Withdrawal, Diminished functioning - Strength & Assets Inventory Strength & Assets Inventory: Cooperative - Limitations Limitations: Other (Lives with his girlfriend) DSM 5 DX - DSM 5 DSM 5 Diagnosis: Major depressive disorder recurrent severe with psychotic features. Alcohol withdrawal. Alcohol use disorder severe - Recommended/Plan of Treatment Treatment Recommendations and Plan of Treatment: Patient education. Supportive therapy. CBT for relapse prevention. [place] for abstinence. Will start Ativan taper for alcohol withdrawal symptoms. Will start Seroquel and sertraline. Other PRN medications. Projected ELOS: 8-10-day Discharge Plan and Discharge Criteria: No for minimal withdrawal symptoms. No depression. Stable mood - Smoking Cessation Smoking Cessation Initiated: No Reason for not providing: Patient refused
[2018-08-17] MEDS: Multiple Vitamins Tab PO SCH (09:45)
[2018-08-17] MEDS: Venlafaxine 75 mg ER Cap PO SCH (09:45)
--- NOTE | 2018-08-17 12:20 | PCM.PYCHPN ---
Psychiatric Progress Note - Psychiatric Progress Note Patient seen today, length of contact: 17 min Patient Chief Complaint: "I'm not feeling well" Problems Identified/Issues Discussed: The pt is seen, chart reviewed, case is discussed with staff. The pt is compliant with medications and reports no side-effects. Symptoms are improving but needs more time to stabilize and to avoid relapse. Pt attends groups and activities. Support given, psycho-education provided. After care discussed. Refusing rehab and pretty much any other facility. He will "think" Medication Change: Yes (meds adjusted) Medical Record Reviewed: Yes Mental Status Examination - Cognitive Function Orientation: Person, Place, Situation, Time Memory: Impaired Attention: Poor Concentration: Poor Association: WNL Fund of Knowledge: WNL - Mood Mood: Depressed, Anxious - Affect Affect: Constricted, Depressed - Speech Speech: Appropriate - Formal Thought Process Formal Thought Process: No Impairment - Suicidal Ideation Suicidal Ideation: No - Homicidal Ideation Homicidal Ideation: No Goal/Treatment Plan - Goal/Treatment Plan Need for Continued Stay: Discharge may exacerbated symptoms, Severe functional impairment Progress Toward Problem(s) and Goals/Treatment Plan: Continue medications Support and psychoeducation daily Attend groups and activities daily Individual therapy After care planning by JACOB and the team
[2018-08-18] MEDS: Multiple Vitamins Tab PO SCH (09:26)
[2018-08-18] MEDS: Venlafaxine 75 mg ER Cap PO SCH (09:26)
--- NOTE | 2018-08-18 11:00 | PCM.PYCHPN ---
Psychiatric Progress Note - Psychiatric Progress Note Patient seen today, length of contact: 15 min Patient Chief Complaint: "I'm tired" Problems Identified/Issues Discussed: The pt is seen, chart reviewed, case discussed with staff. Support and psychoeducation given, CBT and [place] used briefly No new symptoms reported, improving slowly and needs more time No SEs from medications, risks discussed. After care discussed. He agrees to come to [facility] but refuses IOP, PHP or rehab. Medication Change: Yes (meds adjusted) Medical Record Reviewed: Yes Mental Status Examination - Cognitive Function Orientation: Person, Place, Situation, Time Memory: Impaired Attention: Poor Concentration: Poor Association: WNL Fund of Knowledge: WNL - Mood Mood: Depressed, Anxious - Affect Affect: Constricted, Depressed - Speech Speech: Appropriate - Formal Thought Process Formal Thought Process: No Impairment - Suicidal Ideation Suicidal Ideation: No - Homicidal Ideation Homicidal Ideation: No Goal/Treatment Plan - Goal/Treatment Plan Need for Continued Stay: Discharge may exacerbated symptoms, Severe functional impairment Progress Toward Problem(s) and Goals/Treatment Plan: Continue medications Support and psychoeducation daily Attend groups and activities daily Individual therapy After care planning by JACOB and the team Naltrexone or topamax for cravings Estimated Date of D/C: 08/21/18
[2018-08-19 07:40] LABS: ALB/GLOB RATIO 1.2 (1.0-2.1); ALBUMIN 4.7 g/dL (3.5-5.0); ALT/SGPT 132 U/L (21-72); AST/SGOT 92 U/L (17-59); BLOOD UREA NITROGEN 29 mg/dL (9-20); GFR NON-AFRICAN AMERICAN 57
[2018-08-19] MEDS: Venlafaxine 75 mg ER Cap PO SCH (10:45)
[2018-08-19] MEDS: Multiple Vitamins Tab PO SCH (10:45)
--- NOTE | 2018-08-19 15:59 | PCM.PYCHPN ---
Psychiatric Progress Note - Psychiatric Progress Note Patient seen today, length of contact: 15 min Patient Chief Complaint: "I'm better" Problems Identified/Issues Discussed: The pt is seen, chart reviewed, case discussed with staff. He is mostly in bed Mood is improving No issues with meds CBT and [place] used Wants d/c soon Medication Change: Yes (meds adjusted) Medical Record Reviewed: Yes Mental Status Examination - Cognitive Function Orientation: Person, Place, Situation, Time Memory: Impaired Attention: Poor Concentration: Poor Association: WNL Fund of Knowledge: WNL - Mood Mood: Depressed, Anxious - Affect Affect: Constricted, Depressed - Speech Speech: Appropriate - Formal Thought Process Formal Thought Process: No Impairment - Suicidal Ideation Suicidal Ideation: No - Homicidal Ideation Homicidal Ideation: No Goal/Treatment Plan - Goal/Treatment Plan Need for Continued Stay: Discharge may exacerbated symptoms, Severe functional impairment Progress Toward Problem(s) and Goals/Treatment Plan: Continue medications Support and psychoeducation daily Attend groups and activities daily Individual therapy After care planning by JCAOB and the team Naltrexone or topamax for cravings Estimated Date of D/C: 08/21/18
[2018-08-20 06:32] VITALS: O2SAT 96
[2018-08-20] MEDS: Multiple Vitamins Tab PO SCH (09:36)
[2018-08-20] MEDS: Venlafaxine 75 mg ER Cap PO SCH (09:36)
[2018-08-20] MEDS ORDERED: Venlafaxine 37.5 mg ER Cap PO ONE (12:00)
--- NOTE | 2018-08-20 12:14 | PCM.PYCHPN ---
Psychiatric Progress Note - Psychiatric Progress Note Patient seen today, length of contact: 22 min Patient Chief Complaint: "I want to leave" Problems Identified/Issues Discussed: The pt is seen, chart reviewed, case discussed with staff. The pt is compliant with medications and reports no side-effects. He had some confusion and agitation after midnight. This morning he was assessed again. He was oriented to place and person but had difficulty with time. His memory was 3 out of 3 immediate 1 out of 3 in recent recall. He was able to tell the last 3 presidents and his home address Mood is still down Support given, psycho-education provided. After care discussed. He will be referred to IOP Medication Change: Yes (meds adjusted) Medical Record Reviewed: Yes Mental Status Examination - Cognitive Function Orientation: Person, Place, Situation, Time Memory: Impaired Attention: Poor Concentration: Poor Association: WNL Fund of Knowledge: WNL - Mood Mood: Depressed, Anxious - Affect Affect: Constricted, Depressed - Speech Speech: Appropriate - Formal Thought Process Formal Thought Process: No Impairment - Suicidal Ideation Suicidal Ideation: No - Homicidal Ideation Homicidal Ideation: No Goal/Treatment Plan - Goal/Treatment Plan Need for Continued Stay: Discharge may exacerbated symptoms, Severe functional impairment Progress Toward Problem(s) and Goals/Treatment Plan: Continue medications Support and psychoeducation daily Attend groups and activities daily Individual therapy After care: IOP in [place] Naltrexone or topamax for cravings Estimated Date of D/C: 08/21/18
[2018-08-21 07:01] VITALS: BP 148/85; PULSE 101; RESP 18; TEMP 98.1
[2018-08-21] MEDS: Multiple Vitamins Tab PO SCH (09:36)
[2018-08-21] MEDS ORDERED: Venlafaxine 150 mg ER Cap PO SCH (10:00)
--- NOTE | 2018-08-21 10:07 | PCM.PYCHDC ---
Mental Status Examination - Mental Status Examination Orientation: Person Discharge Summary - Discharge Note Consultations:: List each consultation separately and include: 1. Reason for request. 2. Findings. 3. Follow-up Summary of Hospital Course include:: 1. Description of specific treatment plan utilized for patients during their course of treatmen. 2. Summarize the time- course for resolution of acute symptoms and/or regressed behaviors. 3. Describe issues identified and worked on during hospitalization. 4. Describe medication utilized. 5. Describe medical problems identified and treated. 6. Reassessment of suicide risk Summary of Hospital Course: left early Refused consent for Confused at nights Will go to IOP - Diagnosis (1) Alcohol use disorder, severe, dependence Current Visit: No Status: Acute (2) Bipolar disorder, curr episode mixed, severe, with psychotic features Current Visit: No Status: Acute - Final Diagnosis (DSM 5) Condition upon Discharge: STABLE Disposition: HOME/ ROUTINE Follow-up Treatment Plan: Continue medications Support and psychoeducation daily Attend groups and activities daily Individual therapy After care: [facility] in [place] Naltrexone or topamax for cravings Prescriptions/Medication Reconciliation: Gabapentin [Neurontin] 300 mg PO TID #90 cap QUEtiapine [Seroquel] 100 mg PO HS #30 tab traZODone [Desyrel] 50 mg PO HS PRN #30 tab PRN Reason: Insomnia
== END 2018-08-21 10:25 | disposition home or self-care (01) | DRG 885 ==
LOC: C.ER 06:04 → C.5E 11:34
PROC: GZHZZZZ Group Psychotherapy (ICD-10-PCS; principal; 2018-08-16)
PROC: GZ56ZZZ Individual Psychotherapy, Supportive (ICD-10-PCS; 2018-08-16)
DX: F31.64 Bipolar disorder, current episode mixed, severe, with psychotic features (principal); F10.230 Alcohol dependence with withdrawal, uncomplicated; F17.210 Nicotine dependence, cigarettes, uncomplicated; I10 Essential (primary) hypertension; Z91.19 Patient's noncompliance with other medical treatment and regimen; F33.3 Major depressive disorder, recurrent, severe with psychotic symptoms; Y90.6 Blood alcohol level of 120-199 mg/100 ml